=== PATIENT | male | born 1975 | race American Indian/Alaskan Native ===

== ENCOUNTER 2017-03-17 13:51 | Emergency (ER) | payer SELFPAY ==
[2017-03-17] MEDS ORDERED: TYLENOL PO ONE (15:29)
--- NOTE | 2017-03-17 16:01 | XRay Report ---
LEFT FOOT RADIOGRAPHS INDICATION: Swelling for 2 days. COMPARISON: None similar. FINDINGS: AP, lateral and oblique views of the left foot demonstrate intact bony articulation. Small plantar calcaneal spur. Mild dorsal soft tissue swelling not excluded. CONCLUSION: No acute left foot bony abnormality with few other findings, as above. Please correlate. Thank you for the opportunity to participate in this patient's care.
--- NOTE | 2017-03-17 16:02 | XRay Report ---
LEFT ANKLE RADIOGRAPHS INDICATION: Ankle swelling for 2 days. COMPARISON: None similar at this institution. FINDINGS: AP, lateral and oblique left ankle radiographs demonstrate intact mortise, malleoli and talar dome contour. Small plantar calcaneal spur. Moderate atherosclerotic vascular calcifications. CONCLUSION: No acute left ankle radiographic abnormality with few other findings, as above. Thank you for the opportunity to participate in this patient's care.
[2017-03-17 21:06] VITALS: BP 130/93
[2017-03-17] MEDS ORDERED: TORADOL IM ONE (21:15)
[2017-03-17] MEDS ORDERED: ROXICODONE PO ONE (21:19)
--- NOTE | 2017-03-17 21:20 | Emergency Department Report ---
ED Extremity Problem HPI - General Chief complaint: Extremity Injury, Lower Stated complaint: LT FEET SWOLLEN Time Seen by Provider: 03/17/17 21:10 Source: patient, RN notes reviewed Mode of arrival: Wheelchair Limitations: No Limitations - History of Present Illness Initial comments: This is a 41-year-old male. He is previously unknown to me. The patient does not have a primary care doctor. He denies chronic medical conditions. The patient presents to the ER complaining of painful left toe swelling and foot swelling for the past 2 days. He does admit to a recent ingestion of red meat, heavy foods and alcohol. No fevers or chills. No chest pain or shortness of breath. No weakness. No unintentional weight gain. He thinks that this is happened before, but he is not certain. MD Complaint: extremity pain, extremity swelling -: Gradual Location: left History of Same: Yes -: Yes myalgia, Yes arthralgia Radiation: none Severity scale (0 -10): 4 Quality: aching Consistency: constant Improves with: medication, rest Worsens with: weight bearing, walking, palpation Associated Symptoms: denies other symptoms - Related Data Previous Rx's Medication Instructions Recorded Last Taken Type Ibuprofen [Motrin] 600 mg PO Q8H PRN #30 tablet 03/17/17 Unknown Rx oxyCODONE [Roxicodone] 5 mg PO Q6HR PRN #15 tablet 03/17/17 Unknown Rx Allergies Allergy/AdvReac Type Severity Reaction Status Date / Time No Known Allergies Allergy Verified 03/17/17 15:22 ED Review of Systems ROS: Stated complaint: LT FEET SWOLLEN Other details as noted in HPI Constitutional: denies: fever Eyes: denies: eye discharge ENT: denies: epistaxis Respiratory: denies: cough Cardiovascular: denies: chest pain Gastrointestinal: denies: abdominal pain Genitourinary: as per HPI Musculoskeletal: arthralgia, myalgia Skin: denies: rash Neurological: denies: paresthesias ED Past Medical Hx - Past Medical History Previous Medical History?: No - Surgical History Past Surgical History?: No - Social History Smoking Status: Current Some Day Smoker Substance Use Type: Alcohol - Medications Home Medications: Home Medications Medication Instructions Recorded Confirmed Last Taken Type Ibuprofen [Motrin] 600 mg PO Q8H PRN #30 tablet 03/17/17 Unknown Rx oxyCODONE [Roxicodone] 5 mg PO Q6HR PRN #15 tablet 03/17/17 Unknown Rx ED Physical Exam - General Limitations: Physical Limitation General appearance: alert, in no apparent distress - Head Head exam: Present: atraumatic, normocephalic - Eye Eye exam: Present: normal appearance, EOMI. Absent: nystagmus - ENT ENT exam: Present: normal exam, normal orophraynx, mucous membranes moist, normal external ear exam - Neck Neck exam: Present: normal inspection, full ROM. Absent: tenderness, meningismus - Respiratory Respiratory exam: Present: normal lung sounds bilaterally. Absent: respiratory distress, wheezes, rales, rhonchi, stridor, chest wall tenderness, accessory muscle use, decreased breath sounds, prolonged expiratory - Cardiovascular Cardiovascular Exam: Present: regular rate, normal rhythm, normal heart sounds. Absent: bradycardia, tachycardia, irregular rhythm, systolic murmur, diastolic murmur, rubs, gallop - GI/Abdominal GI/Abdominal exam: Present: soft, normal bowel sounds. Absent: distended, tenderness, guarding, rebound, pulsatile mass - Rectal Rectal exam: Present: deferred - Extremities Exam Extremities exam: Present: full ROM (full range of motion noted to the bilateral upper extremities. Full range of motion noted to the right lower extremity.), tenderness, normal capillary refill (2+ pulses noted in the bilateral upper and lower extremities). Absent: normal inspection (the bilateral upper extremities are normal to inspection. The right lower extremity is normal to inspection. The left great toe is swollen, and minimally warm. Patient is able to actively and passively range the left great toe, with some pain. There is no streaking or crepitus. The compartments are soft.), pedal edema, joint swelling, calf tenderness - Back Exam Back exam: Present: normal inspection, full ROM. Absent: tenderness, CVA tenderness (R), paraspinal tenderness - Neurological Exam Neurological exam: Present: alert, oriented X3, other (Extraocular movements intact. Tongue midline. No facial droop. Facial sensation intact to light touch in the V1, V2, V3 distribution bilaterally. 5 and 5 strength in 4 extremities.. Sensation is intact to light touch in 4 extremities.). Absent: motor sensory deficit - Psychiatric Psychiatric exam: Present: normal affect, normal mood - Skin Skin exam: Present: warm ED Course Vital Signs 03/17/17 03/17/17 03/17/17 15:23 20:42 20:50 Temperature 97.6 F Pulse Rate 98 H 73 66 Respiratory 16 16 13 Rate Blood Pressure 137/100 130/93 O2 Sat by Pulse 100 82 L 99 Oximetry 03/17/17 03/17/17 03/17/17 21:30 21:31 22:03 Temperature Pulse Rate Respiratory 18 18 18 Rate Blood Pressure O2 Sat by Pulse 98 Oximetry ED Medical Decision Making - Lab Data Result diagrams: 03/17/17 21:26 Vital Signs 03/17/17 03/17/17 03/17/17 15:23 20:42 20:50 Temperature 97.6 F Pulse Rate 98 H 73 66 Respiratory 16 16 13 Rate Blood Pressure 137/100 130/93 O2 Sat by Pulse 100 82 L 99 Oximetry 03/17/17 03/17/17 03/17/17 21:30 21:31 22:03 Temperature Pulse Rate Respiratory 18 18 18 Rate Blood Pressure O2 Sat by Pulse 98 Oximetry Labs 03/17/17 03/17/17 21:26 21:26 Sodium 139 Potassium 4.7 Chloride 100.3 Carbon Dioxide 27 Anion Gap 16 BUN 13 Creatinine 1.1 Estimated GFR > 60 BUN/Creatinine Ratio 11.81 Glucose 93 Calcium 9.4 Total Bilirubin 0.50 Direct Bilirubin < 0.2 Indirect Bilirubin 0.3 AST 14 ALT 14 Alkaline Phosphatase 84 Total Creatine Kinase 108 Total Protein 7.9 Albumin 3.6 L Albumin/Globulin Ratio 0.8 - Radiology Data Radiology results: report reviewed, image reviewed X-ray of the foot negative for fracture or dislocation. X-ray of the ankle negative for fracture or dislocation. - Medical Decision Making Differential diagnosis: Arthritis, gout, pseudogout Assessment and plan: 41-year-old male with left great toe swelling, no fevers or chills and no streaking. He is able to range the foot. He felt improved after pain medication. His laboratory studies were unremarkable. He will be started on colchicine, and discharged with NSAIDs. 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 Critical care attestation.: If time is entered above; I have spent that time in minutes in the direct care of this critically ill patient, excluding procedure time. ED Disposition Clinical Impression: Toe pain, left Disposition: DC-01 TO HOME OR SELFCARE Is pt being admited?: No Does the pt Need Aspirin: No Condition: Stable Instructions: Acute Gouty Arthritis (ED), Rheumatoid Arthritis (ED) Additional Instructions: Symptoms most likely coming from either gout or pseudogout. This is typically a crystal arthritis/inflammation of the joint. Avoid consumption of red meat, heavy and spicy foods, cheese and alcohol. Weight-bear as tolerated, use the crutches as needed. Follow up with the primary care doctor or truck trailer final inspector within the next 3-4 weeks. Return to the ER right away with new pain, worsened pain, migration of pain, fevers, chills, chest pain, shortness of breath, streaking, redness, pus, confusion, inability to tolerate liquid feeds. If taking the oxycodone for pain, do not drive, consume alcohol, or make important decisions. Colchicine was given to you in the emergency department, it may cause abdominal cramping and diarrhea. These are normal and expected side effects. Prescriptions: Ibuprofen [Motrin] 600 mg PO Q8H PRN #30 tablet PRN Reason: Pain oxyCODONE [Roxicodone] 5 mg PO Q6HR PRN #15 tablet PRN Reason: Pain Referrals: PRIMARY CARE, [Primary Care Provider] - 3-5 Days LINDSEY DUDLEY MD [Staff Physician] - 3-5 Days BLAYNE SHAFER MD [Staff Physician] - 3-5 Days RACHELLE STANLEY MD [Referring] - 3-[address] MD [Referring] - 3-5 Days ROSALIO MAURO MD [Referring] - 3-5 Days SUKHJINDER GAN MD [Referring] - 3-5 Days FABIEN CURRY MD [Referring] - 3-5 Days ANANTH LEMUS MD [Referring] - 3-5 Days
[2017-03-17 21:57] LABS: Anion Gap 16 mmol/L; BUN/Creatinine Ratio 11.81; Blood Urea Nitrogen 13 mg/dL (9-20); Calcium 9.4 mg/dL (8.4-10.2); Carbon Dioxide 27 mmol/L (22-30); Chloride 100.3 mmol/L (98-107); Creatine Kinase 108 units/L (55-170); Glucose 93 mg/dL (75-100); Potassium 4.7 mmol/L (3.6-5.0); Sodium 139 mmol/L (137-145)
[2017-03-17 22:01] LABS: Alanine Aminotransferase 14 units/L (7-56); Albumin 3.6 g/dL (3.9-5); Albumin/Globulin Ratio 0.8 %; Alkaline Phosphatase 84 units/L (35-129); Total Protein 7.9 g/dL (6.3-8.2)
[2017-03-17 22:04] LABS: Bilirubin,Direct < 0.2 mg/dL (0-0.2); Bilirubin,Indirect 0.3 mg/dL
[2017-03-17] MEDS ORDERED: COLCRYS PO ONE ×2 (22:11→23:45)
== END 2017-03-17 23:03 | disposition home or self-care (01) ==
LOC: ED 13:51
DX: M79.675 Pain in left toe(s) (principal); M79.89 Other specified soft tissue disorders; F17.210 Nicotine dependence, cigarettes, uncomplicated
CPT/HCPCS: 36415; 73610; 73630; 80048; 80074; 82550; 96372; 99284; J1885